=== PATIENT | female | born 1955 | race Caucasian/White ===

== ENCOUNTER 2017-09-08 07:06 | Day surgery (SDC) | payer OTHER ==
[~2017-09-08] VITALS: Ht 157.5 cm; Wt 97.1 kg
[~2017-09-08 07:06] MED LIST: AMLODIPINE BESY10 MG PO; ASPIR 8181 MG PO; HYDROCHLOROTHIA25 MG PO; LASIX20 MG PO; MONTELUKAST SOD10 MG PO; OMEPRAZOLE20 M1 PO; VENLAFAXINE HC100 MG PO
--- NOTE | 2017-09-08 08:58 | NUR ---
09/08/17 0858 Xochitl Gaitan 0801-PATIENT ARRIVED TO PACU AWAKE ON 2L NC O2 SAT 97% ABDOMEN SOFT ENCOURAGED TO PASS FLATUS. DENIES PAIN OR NAUSEA. RIDE TO BE CALLED LIVES IN [place]. PATIENT DROWSY
--- NOTE | 2017-09-08 13:24 | NUR ---
PT RESTING IN BED. SHE IS ALERT AND ORIENTED. ROUTINE SCOPE, EXPLAINED COURSE OF EVENTS FOR TODAY. SHE HAS RECENTLY MOVED FROM [place] TO [place]. PT SEEMS TO BE COPING WELL WITH THE SLIGHT DELAY, REQUESTED PRAYER
--- NOTE | 2017-09-09 10:38 | OR ---
[facility] [address], [place] [address] Signed DATE OF PROCEDURE: 09/08/17 PREOPERATIVE DIAGNOSIS: Screening. POSTOPERATIVE DIAGNOSES Minimal sigmoid diverticulosis. A 4-mm polyp proximal right colon. A 3-mm polyp at 8 cm. PROCEDURE: Colonoscopy with hot biopsy. ESTIMATED BLOOD LOSS: None. INDICATIONS Joie is a 61-year-old female, who was asked to see me for colonoscopy. Somewhere in her early 50s, she had a negative colonoscopy with [facility] in [place], [place]. She thinks it was 2004. In the meantime, she has no lower GI complaints. There is no family history of colon cancer or polyps. In the office, I gave her a pamphlet on colonoscopy, and we looked at the nature of that test along with the risks including, but not limited to gas bloating, crampy abdominal pain, bleeding, perforation requiring surgery, and missed diagnosis. We also reviewed the need for IV conscious sedation. She had expressed understanding and wished to proceed. PROCEDURE NOTE Joie was taken into our endoscopy suite and placed in the left lateral decubitus position. She was given divided doses of 9 mg of Versed and 200 mcg of Fentanyl. A digital rectal exam was performed, and this was unremarkable. The adult colonoscope was introduced and advanced all around into the cecum under direct visualization of camera without difficulty. Her prep was good. The scope was then slowly withdrawn. In the proximal right colon, she had a tiny polyp which we removed with a hot biopsy forceps. Also in the sigmoid colon, she does have diverticulosis. They are moderate in size, minimal in number, and scattered about. In the rectum, she had a tiny polyp at 8 cm, which were removed with a hot biopsy forceps. Upon retroflexion of the scope, she had very little in the way of internal hemorrhoids. After this, the gas was suctioned out. The colonoscope removed. Joie tolerated the procedure quite well. RECOMMENDATIONS I will see Joie beebe in my office in 7-14 days to review her results. Electronically Signed By: MARIA ISABEL PASTRANA MD 09/09/17 1038 PATIENT NAME: ELIEJOIE MAE OPERATIVE REPORT DATE OF : 53 PHYSICIAN: MARIA ISABEL PASTRANA MD REPORT #: [id number] REPORT IS CONFIDENTIAL AND NOT TO BE RELEASED WITHOUT AUTHORIZATION [address] [place], [place] [address] Signed Maria Isabel Pastrana MD AB/Modl /[id number] cc: Pineda Contreras DO Electronically Signed By: MARIA ISABEL PASTRANA MD 09/09/17 1038 PATIENT NAME: JOIE DELGADILLO OPERATIVE REPORT DATE OF : 53 PHYSICIAN: MARIA ISABEL PASTRANA MD REPORT #: [id number] REPORT IS CONFIDENTIAL AND NOT TO BE RELEASED WITHOUT AUTHORIZATION
== END 2017-09-08 09:55 | disposition home or self-care (01) ==
LOC: OPS 07:06 → DS 07:06 → OPS 09:45
PROVIDERS: Colon & Rectal Surgery
PROC: 0DBP8ZX Excision of Rectum, Via Natural or Artificial Opening Endoscopic, Diagnostic (ICD-10-PCS; 2017-09-08)
PROC: 0DBK8ZX Excision of Ascending Colon, Via Natural or Artificial Opening Endoscopic, Diagnostic (ICD-10-PCS; principal; 2017-09-08 08:15)
DX: Z12.11 Encounter for screening for malignant neoplasm of colon (principal); K63.5 Polyp of colon; K57.30 Diverticulosis of large intestine without perforation or abscess without bleeding; K64.8 Other hemorrhoids; I10 Essential (primary) hypertension; J45.909 Unspecified asthma, uncomplicated; K21.9 Gastro-esophageal reflux disease without esophagitis; F32.9 Major depressive disorder, single episode, unspecified; E66.9 Obesity, unspecified; Z79.82 Long term (current) use of aspirin; Z79.899 Other long term (current) drug therapy; Z90.89 Acquired absence of other organs; Z90.710 Acquired absence of both cervix and uterus; Z90.49 Acquired absence of other specified parts of digestive tract; Z68.39 Body mass index [BMI] 39.0-39.9, adult
CPT/HCPCS: 99152; 99153; J2250; J3010; J7120